=== PATIENT | female | born 1995 | race Caucasian/White ===

== ENCOUNTER 2020-08-22 09:59 | Inpatient (IN) | payer MEDICAID, SELFPAY ==
[2020-08-22 10:03] VITALS: BP 105/67; PULSE 89; RESP 18; TEMP 36.7; O2SAT 97; BMI 3945.4
--- NOTE | 2020-08-22 10:05 | W.ED.PSYCH ---
HPI - Psych General: Stated Complaint: PSYCH EVAL/DIRECT ADMIT Time Seen by Provider: 08/22/20 10:02 History of Present Illness: HPI Narrative: 27-year-old female presents to the emergency room due to transfer from [facility]. She was suicidal. She is in the emergency room for a screening for admission to the psych unit. She denies any recent illness she denies any cough cold fever sweats chills nausea vomiting or diarrhea her son was sick a couple of weeks ago but he was screened for Covid and was found to be negative. Patient is being admitted to our psychiatric unit due to suicidal ideation which she expresses discontinuing at this time. MD complaint: suicidal ideation Onset (ago): day(s) Duration: constant Relieving factors: none Exacerbating factors: none Associated psychiatric symptoms: depression and suicidal ideation If self harm: admits thoughts of self harm Review of Systems Const: Denies: fever(s), chills, body aches, change in appetite, fatigue or malaise ENMT: Denies: throat pain, ear or mastoid pain, nasal discharge or nasal congestion Card: Denies: chest pain, edema, dyspnea on exertion or orthopnea Resp: Denies: dyspnea, productive cough or non-productive cough GI: Denies: abdominal pain, nausea, vomiting, hematemesis, coffee ground emesis, diarrhea, constipation, bloating, hematochezia or melena : Denies: flank pain, difficulty voiding, dysuria, urinary frequency or urinary urgency Skin/Breast: Denies: rash or pruritus Physical Exam Const: COMMON NORMALS: no acute distress GENERAL APPEARANCE: cooperative and comfortable ORIENTATION/CONSCIOUSNESS: Yes awake, Yes oriented to person, Yes oriented to place and Yes oriented to time HENMT: COMMON NORMALS: normocephalic, atraumatic and hearing grossly normal bilaterally HEAD & SCALP: normocephalic and atraumatic Eye: COMMON NORMALS: Equal, round and reactive pupils present, EOMs intact bilaterally, conjunctivae normal and no scleral icterus CONJUNCTIVA: Yes conjunctivae normal PUPIL: Yes Equal, round and reactive pupils present Neck/C-Spine: COMMON NORMALS: no JVD Resp: COMMON NORMALS: normal respiratory effort, No retractions, No use of accessory muscles and clear to auscultation bilaterally AUSCULTATION: clear to auscultation bilaterally Cardio: COMMON NORMALS: no JVD, regular rate, regular rhythm and No murmurs present (Cardio) RATE: regular rate RHYTHM: regular rhythm Extremity: COMMON NORMALS: normal to inspection, capillary refill normal, no clubbing, cyanosis or edema, no calf tenderness and no pedal edema Neuro: SENSORIUM/ORIENTATION: Yes oriented to person, Yes oriented to place and Yes oriented to time Skin: COMMON NORMALS: no rashes or lesions noted GENERAL SKIN EXAM: no rashes or lesions noted MDM - Psych MDM Narrative: Medical decision making narrative: Patient did have a PCR done at an outside facility as part of screening. She is otherwise completely asymptomatic the test was not done because of concern of the presence of ongoing infection or recent exposure. At this point without any clinical symptoms I think she can be safely admitted to the MPU. Discharge Plan Discharge Patient Disposition: Admitted As Inpatient Clinical Impression: Suicidal ideation Condition: Stable Coding Level of Care Code ED Communication Skills Instructor for Kana Guerrero Exam Comprehensive
--- NOTE | 2020-08-22 10:34 | PC.NURSE ---
report given to Wei in NPU. Patient being transferred to NPU via wheelchair with ED nurse and a/c tech.
[2020-08-22 10:52] VITALS: BP 108/73; PULSE 86; RESP 18; TEMP 36.4; O2SAT 98
[2020-08-22 15:26] VITALS: BP 103/69; PULSE 68; RESP 18; TEMP 37.1; O2SAT 96
[2020-08-22] MEDS: OLANZapine 5 mg ODT PO (16:28)
[2020-08-22] MEDS: hyDROXYzine 25 mg Capsule 50 MG PO ×2 (16:29→20:27)
--- NOTE | 2020-08-22 16:29 | PC.NURSE ---
Addendum entered by Chen Lemos LPN 08/22/20 18:27: PRN MEDS EFFECTIVE NO FURTHER C/O AGITATION OR ANXIETY CURRENTLY. PT MOOD IS MUCH MORE CALM, SHE WAS ABLE TO SPEAK TO HER MOTHER ON THE PHONE & VISIT WITH HER KIDS. Original Note: BEHAVIOR/PRN VISTARIL & ZYPREXA ZYDIS VISTARIL 50 MG GIVEN PO PER PT C/O ANXIETY & ZYPREXA ZYDIS 5 MG GIVEN PO PER PT C/O STATED AGITATION. PT YELLING LOUDLY IN DAY ROOM, SCREAMING AT STAFF ABOUT HOW ALL WE DO IS SIT AROUND IN SILENCE! PT YELLED IF I WANTED TO SIT ALONE I WOULD HAVE JUST STAYED HOME! THIS IS THE WORST PLACE I'VE EVER BEEN TOO & IT IS FUCKING RIDICULOUS HERE! PT OFFERED PRN MEDICATIONS FOR ANXIETY AND AGITATION, PT STATED SHE WOULD LIKE MEDS. WHEN THIS NURSE LEFT ROOM TO GET PRN MEDICATIONS PT YELLED OUT OH SURE JUST DRUG ME UP TO SHUT ME UP. STAFF ATTEMPTS TO SPEAK TO PT IN HER ROOM FOR PRIVACY & TO ENCOURAGE THERAPEUTIC COMMUNICATION. PT TOOK PRN MEDICATIONS WITHOUT INCIDENT. WILL CONT TO MONITOR
[2020-08-22 20:04] VITALS: BP 93/65; PULSE 110; RESP 16; TEMP 36.8; O2SAT 98
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
[2020-08-22] MEDS: trazodone 50 mg Tablet PO (20:26)
[2020-08-22] MEDS: lamoTRIgine 100 mg Tablet 50 MG PO (20:27)
[2020-08-23 06:00] VITALS: BP 105/73; PULSE 66; RESP 18; TEMP 36.6; O2SAT 100
[2020-08-23] MEDS: hyDROXYzine 25 mg Capsule 50 MG PO (11:57)
--- NOTE | 2020-08-23 11:57 | PC.NURSE ---
PRN VISTARIL 50 MG GIVEN PO PER PT C/O ANXIETY. PT TEARFUL IN ROOM, C/O MISSING HER KIDS. WILL CONT TO MONITOR
--- NOTE | 2020-08-23 13:21 | NPU.GN ---
Kareen spoke up a few times during the session and was fairly open about her experiences. She seemed to have some negative thoughts in her mind but contributed well to the conversation.
[2020-08-23 14:00] VITALS: BP 112/70; PULSE 88; RESP 18; TEMP 37; O2SAT 98
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
[2020-08-23 15:09] VITALS: BP 112/70; PULSE 88; RESP 18; TEMP 37; O2SAT 98
== END 2020-08-23 17:13 | disposition home or self-care (01) | DRG 881 ==
LOC: ER 10:11 → NP 10:25
PROVIDERS: Admitting Provider Psychiatry & Neurology Psychiatry; Visit Provider Psychiatry & Neurology Psychiatry
DX: F32.9 Major depressive disorder, single episode, unspecified (principal); R45.851 Suicidal ideations; F60.89 Other specific personality disorders; Z62.810 Personal history of physical and sexual abuse in childhood
CPT/HCPCS: 12345; 99284